=== PATIENT | female | born 1955 | race African-American/Black ===

== ENCOUNTER 2023-11-09 11:59 | Emergency (ER) | payer MEDICARE, SELFPAY ==
[2023-11-09 12:02] VITALS: BP 155/77
--- NOTE | 2023-11-09 12:37 | EDRN ---
Mike Black PA in to see pt at 12:25.
[2023-11-09 12:45] VITALS: BMI 30.7
[2023-11-09 12:54] VITALS: BP 138/68
[2023-11-09 13:00] VITALS: BP 152/86
--- NOTE | 2023-11-09 13:21 | ED.GENMED ---
History of Present Illness
General
Chief Complaint: Chest Pain
Time Seen by Provider: 11/09/23 12:29
History of Present Illness
History of Present Illness:
68-year-old female presents to the emergency department for evaluation of chest pain that began upon awakening today. She states the pain is similar to prior GERD symptoms. Did not worsen after eating. Denies any pleuritic or exertional nature of
the symptoms, denies any positional nature to the symptoms. Denies any associated dizziness or shortness of breath. Took a dose of Tums which did not help. Does have history of hypertension hyperlipidemia as well as strong family history of
coronary disease. Follows with [facility] and had a echocardiogram 1 month ago according to the patient
Review of Systems
Review of Systems
Allergies reviewed?: Yes
All Other Systems: ROS reviewed and negative except as documented in HPI and ROS
Phy Exam
Physical Exam
Physical Exam:
GEN: Well appearing, NAD, WDWN
HEENT: Oral mucosa moist, no scleral icterus
Cardiac: Regular rate and rhythm, no murmurs
Lung: No respiratory distress, no tachypnea, lungs clear to auscultation bilaterally
MSK: No gross deformity or injuries
Skin: Good color, no pallor or jaundice, no rashes
Neuro: AO x3, moves all extremities freely
Psych: Calm, cooperative
Scores
Heart Score for Chest Pain Patients
STEMI patient?: No
History: Slightly or Non-Suspicious
ECG: Normal
Age: >/= 65 years
Risk Factors: >/= 3 Risk Factors or History of CAD
Troponin: </= Normal Limit
Heart Score for Chest Pain Patients: 4
Heart Score Risk: 20.3% MACE over next 6 weeks
Course
Orders/Labs/Results
Orders:
Orders
11/09/23 12:04
ECG [Electrocardiogram (*1)] Urgent
Reason for Study: Chest Pain
EKG- Treatment ONCE
11/09/23 12:53
Cardiac Monitoring- Treatment ONCE
IV Insert/Care/Rem.- Treatment PRN
11/09/23 13:11
Complete Blood Count/With Diff Urgent
11/09/23 13:54
CR Chest - 2 Views Urgent
Comment:
Reason For Exam: chest pain
11/09/23 15:02
Comprehensive Metabolic Panel Urgent
Troponin I Urgent
Abnormal Lab Results
11/09/23
15:02
Carbon Dioxide 20 L mmol/L
(22-30)
Creatinine 0.5 L mg/dL
(0.6-1.0)
Glucose 101 H mg/dl
(70-99)
AST 43 H U/L
(14-36)
11/09/23 13:11
11/09/23 15:02
Vital Signs
Initial and Last Documented VS:
Initial Vital Signs
Temp Pulse Resp BP Pulse Ox
98.5 F 76 20 155/77 100
11/09/23 12:02 11/09/23 12:02 11/09/23 12:02 11/09/23 12:02 11/09/23 12:02
Last Documented Vital Signs
Temp Pulse Resp BP Pulse Ox
98.5 F 71 19 147/69 99
11/09/23 12:02 11/09/23 14:16 11/09/23 14:16 11/09/23 15:42 11/09/23 15:41
MDM/Problems Addressed
MDM/Problems Addressed:
Patient's cardiac workup is reassuring. The lack of exertional is certainly reassuring as well. Additionally is reassuring to note that the patient follows closely with a jboss architect and had a unremarkable echocardiogram recently. Recommend she
contact her jboss architect for follow-up but we will treat this as GERD with PPIs
Comment
Comment:
EKG independently interpreted by me shows normal sinus rhythm at a rate of [address] changes concerning for ischemia
*Critical Care Note
Total Time (30-74mins, 75-104mins- exclusive of procedures): Not Applicable
ED Attending Note
-
Portions of this chart may have been created with voice recognition software.� Occasional wrong word or��sound alike� substitutions may have occurred due to the inherent limitations of voice recognition software.
Discharge Plan
Departure
Patient Disposition: Home (Routine Discharge)
Date of Disposition: 11/09/23
Time of Disposition: 15:52
Patient with high blood pressure during this ER visit?: No
Discharge Problem:
Atypical chest pain
Instructions: Chest Pain NON-[employer] T[employer] Technician Follow Up
Prescriptions:
New
omeprazole 40 mg capsule,delayed release(DR/EC)
40 mg PO DAILY Qty: 10 0RF
Referrals:
Ambreen Nance MD [Family Provider] -
Interventions
Interventions:
*Risk Screen - Suicide Last Done: 11/09/23 12:49
*General Assessment Last Done: 11/09/23 12:49
*Neglect/Abuse Screening Last Done: 11/09/23 12:49
ED- Fall Risk Assessment Last Done: 11/09/23 12:49
*ED COVID-19 Vaccine History Last Done: 11/09/23 12:49
*Nursing Disposition Last Done: 11/09/23 16:14
ED- Cardiac Assessment Last Done: 11/09/23 12:56
Discharge Date and Time
Discharge Date/Time: 11/09/23 16:15
Print Language: SYRIAN
[2023-11-09 13:22] LABS: % Basophils 0.8 % (0-2); % Eosinophils 1.5 % (0-6); % Immature Granulocytes 0.4 % (0-0.5); % Lymphocytes 32.6 % (20.5-51.1); % Monocytes 8.5 % (1.7-9.3); % Neutrophils 56.2 % (42.2-75.2); Absolute Eosinophils 0.1 10^3/uL (0-0.7); Absolute Lymphocytes 1.7 10^3/uL (1.2-3.4); Absolute Monocytes 0.5 10^3/uL (0.1-0.6); Hematocrit 37.5 % (37.0-47.0); Hemoglobin 12.8 g/dL (12.0-16.0); Mean Corp Hgb Conc. 34.1 g/dL (33.0-37.0); Mean Corpuscular Hgb 30.3 pg (27.0-31.0); Mean Corpuscular Volume 88.9 fL (81.0-99.0); Mean Platelet Volume 9.2 fL (7.4-10.4); Nucleated Red Blood Cells % 0 %; Platelet Count 197 10^3/uL (130-400); Red Blood Cell Count 4.22 10^6/uL (4.20-5.40); Red Cell Dist. Width 12.2 % (11.5-14.5); White Blood Cell Count 5.3 10^3/uL (4.8-10.8)
--- NOTE | 2023-11-09 14:02 | EDRN ---
SST and troponin blood tubes were called as hemolyzed. Clerk Avalos called for phlebotomy at this time as pt is a difficult IV access and stick.
[2023-11-09 14:08] VITALS: BP 146/70
[2023-11-09 14:11] VITALS: BP 146/70
--- NOTE | 2023-11-09 15:05 | EDRN ---
Pt still awaiting in HW outside of xray. No response from phlebotomy. This RN w/ help of another RN natalee blood and sent it as pt very difficulty stick and needle phobic. Blood labeled and sent to lab. Mike LUCAS notified of repeat bloods drawn and
sent. Pt was asking for water and Mike LUCAS said ok.
[2023-11-09 15:28] LABS: ALT (SGPT) 29 U/L (0-35); AST (SGOT) 43 U/L (14-36); Albumin 4.3 g/dl (3.5-5.0); Alkaline Phosphatase 68 U/L (38-126); Blood Urea Nitrogen 11 mg/dl (7-17); Calcium 9.8 mg/dl (8.4-10.2); Carbon Dioxide 20 mmol/L (22-30); Chloride 107 mmol/L (98-107); Estimated Creatinine Clearance 94 ml/min; Glucose 101 mg/dl (70-99); Potassium 4.6 mmol/L (3.5-5.1); Sodium 138 mmol/L (135-145); Total Bilirubin 0.6 mg/dl (0.2-1.3); Total Protein 6.8 g/dl (6.3-8.2); eGFR > 60.00
[2023-11-09 15:40] LABS: Troponin I < 0.012 ng/ml
[2023-11-09 15:42] VITALS: BP 147/69
== END 2023-11-09 16:15 | disposition home or self-care (01) ==
LOC: EMR 11:59
PROVIDERS: Physician Assistant; EMERGENCY PHYSICIAN Emergency Medicine; FAMILY PHYSICIAN Internal Medicine
DX: R07.89 Other chest pain (principal); K21.9 Gastro-esophageal reflux disease without esophagitis; I10 Essential (primary) hypertension; E78.5 Hyperlipidemia, unspecified
CPT/HCPCS: 99285; 71046; 80053; 84484; 85025; 93005